=== PATIENT | male | born 2000 | race Caucasian/White ===

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

== ENCOUNTER 2018-06-30 08:30 | Emergency (ER) | payer OTHER ==
[2018-06-30] MEDS ORDERED: NS 1,000 ML IV ONE (08:46)
--- NOTE | 2018-06-30 09:03 | EDPHY ---
H & P Time Seen by Provider: 06/30/18 08:42 HPI/ROS: Chief complaint. Confusion HPI. 17-year-old male here with complaint of foggy head or somewhat confused this morning. His roommate called his mom and said he seemed to be acting not normally. Mom felt he was slightly confused and had slight slurred speech though symptoms now have resolved. Patient has been diagnosed with a seizure disorder with seizures in October of 2015. He was begun on Keppra. Apparent follow- up workup with Neurology was normal and he has been off Keppra for 1 and half years without seizure. He denies recent illness or head injury. Denies drugs alcohol. However he did chew some nicotine last night which he normally does not do. Did not bite his tongue. He had slight nausea this morning but no vomiting or diarrhea. His nausea is resolving. ROS 10 systems were reviewed and negative with the exception of the elements mentioned in the history of present illness Past Medical/Surgical History: Seizures in the past Social History: Single, nonsmoker, no alcohol Smoking Status: Never smoked Physical Exam: General Appearance: Alert well-developed male mild distress. Vital signs significant only for blood pressure slightly elevated 150/1 5 Eyes: Pupils equal and round no pallor or injection. ENT, oropharynx without trauma. No tongue bite. No pharyngeal injection. Mucous membranes are moist Respiratory: There are no retractions, lungs are clear to auscultation. Cardiovascular: Regular rate and rhythm. Gastrointestinal: Abdomen is soft and nontender, no masses, bowel sounds normal. Neurological: Awake and alert, sensory and motor exams grossly normal. Speech is normal. Cranial nerves intact. [id number] and [id number] are intact bilaterally. No pronator drift Skin: Warm and dry, no rashes. Musculoskeletal: Neck is supple nontender. Extremities symmetrical, full range of motion. Psychiatric: Patient is oriented X 3, there is no agitation. Constitutional: Initial Vital Signs Temperature (C) 36.7 C 06/30/18 08:32 Heart Rate 87 06/30/18 08:32 Respiratory Rate 18 06/30/18 08:32 Blood Pressure 150/105 H 06/30/18 08:32 O2 Sat (%) 97 06/30/18 08:32 O2 Delivery Mode Room Air Allergies/Adverse Reactions: No Known Allergies Allergy (Unverified 10/30/15 17:30) Home Medications: Medication Instructions Recorded levETIRACETAM [Keppra Xr] 1,000 mg PO DAILY #20 tab.sr.24h 06/30/18 levETIRAcetam [Keppra 500 mg (*)] 500 mg PO BID #30 tab 06/30/18 Medical Decision Making Procedures: IV normal saline ED Course/Re-evaluation: Mom reports roommate called and said that he heard noises as if the patient were thrashing around in the bed this morning. On re-evaluation at 9:30 a.m. Patient is stable. Patient, mom, and I discussed laboratory evaluation. We discussed treatment plan and discussed starting the patient back on Keppra with Neurology follow-up verses no medication and neurology follow-up. They would prefer to start back on Keppra. Differential Diagnosis: Patient had seizures in the past but has been seizure-free for urine half not on medication. Possibly the patient had a seizure today and was somewhat postictal. Workup is normal. He did not bite his tongue. - Data Points Laboratory Results: Laboratory Results 06/30/18 08:50 06/30/18 08:50 06/30/18 06/30/18 08:50 08:50 WBC 7.31 10^3/uL 10^3/uL (3.80-9.50) RBC 5.81 10^6/uL 10^6/uL (4.40-6.38) Hgb 17.3 g/dL g/dL (13.7-17.5) Hct 50.7 % % (40.0-51.0) MCV 87.3 fL fL (81.5-99.8) MCH 29.8 pg pg (27.9-34.1) MCHC 34.1 g/dL g/dL (32.4-36.7) RDW 12.4 % % (11.5-15.2) Plt Count 211 10^3/uL 10^3/uL (150-400) MPV 10.5 fL fL (8.7-11.7) Neut % (Auto) 51.6 % % (39.3-74.2) Lymph % (Auto) 36.0 % % (15.0-45.0) [place] % (Auto) 9.3 % % (4.5-13.0) Eos % (Auto) 1.9 % % (0.6-7.6) Baso % (Auto) 0.8 % % (0.3-1.7) Nucleat RBC Rel Count 0.0 % % (0.0-0.2) Absolute Neuts (auto) 3.77 10^3/uL 10^3/uL (1.70-6.50) Absolute Lymphs (auto) 2.63 10^3/uL 10^3/uL (1.00-3.00) Absolute Monos (auto) 0.68 10^3/uL 10^3/uL (0.30-0.80) Absolute Eos (auto) 0.14 10^3/uL 10^3/uL (0.03-0.40) Absolute Basos (auto) 0.06 10^3/uL 10^3/uL (0.02-0.10) Absolute Nucleated RBC 0.00 10^3/uL 10^3/uL (0-0.01) Immature Gran % 0.4 % % (0.0-1.1) Immature Gran # 0.03 10^3/uL 10^3/uL (0.00-0.10) Sodium 140 mEq/L mEq/L (135-145) Potassium 4.4 mEq/L mEq/L (3.5-5.2) Chloride 108 mEq/L mEq/L (97-110) Carbon Dioxide 24 mEq/l mEq/l (22-31) Anion Gap 8 mEq/L mEq/L (6-14) BUN 15 mg/dL mg/dL (7-23) Creatinine 1.1 mg/dL mg/dL (0.7-1.3) Estimated GFR > 60 Glucose 91 mg/dL mg/dL (70-100) Calcium 9.9 mg/dL mg/dL (8.5-10.4) Medications Given: Discontinued Medications Sodium Chloride (Ns) 1,000 mls @ 0 mls/hr IV EDNOW ONE; Wide Open PRN Reason: Protocol Stop: 06/30/18 08:47 Last Admin: 06/30/18 08:52 Dose: 1,000 mls Departure - Departure Disposition: Home, Routine, Self-Care Clinical Impression: Seizure Condition: Good Instructions: Recurrent Seizures in Adults (ED) Additional Instructions: Caution with driving and other dangerous activities Keppra XR once daily or Keppra 500 mg twice daily. Return for worsening symptoms Call Neurology today for follow-up appointment Return for further seizures, fever, worsening symptoms Referrals: PACO EUGENE [Primary Care Provider] - As per Instructions Tip Billings MD [Medical Doctor] - 2-3 days without fail Prescriptions: levETIRACETAM [Keppra Xr] 1,000 mg PO DAILY #20 tab.sr.24h levETIRAcetam [Keppra 500 mg (*)] 500 mg PO BID #30 tab
[2018-06-30 09:09] LABS: PLATELET COUNT 211 10^3/uL (150-400)
[2018-06-30 09:39] VITALS: BP 140/76
== END 2018-06-30 09:48 | disposition home or self-care (01) ==
DX: G40.909 Epilepsy, unspecified, not intractable, without status epilepticus (principal); E86.9 Volume depletion, unspecified